=== PATIENT | male | born 1950 | race Caucasian/White ===

== ENCOUNTER 2024-09-16 09:18 | Day surgery (SDC) | payer MEDICARE, SELFPAY ==
--- NOTE | 2024-09-16 10:48 | ITS.CL.CARDI ---
Cubing Machine Tender - Cardioversion
Cardioversion
Procedure Report:
Procedure: Direct current electrical cardioversion
Pre-operative diagnosis: Persistent atrial fibrillation
Post-operative diagnosis: Persistent atrial fibrillation status post DC cardioversion to sinus rhythm
Anesthesia: MAC
Attending Physician: Marshall Scott MD
Procedure Description: The patient was brought to the electrophysiology laboratory in the fasting state. Adherence to anticoagulation regimen was confirmed. Informed consent was obtained from the patient prior to the start of the procedure.
Electrodes were placed on the patient and connected to an external defibrillator. Monitoring of blood pressure, ECG tracings, and pulse oximetry was initiated. The pads were applied to the patient in the anterior and posterior positions. The patient
was sedated by the anesthesiologist. A 200 joule biphasic synchronized shock was delivered to the patient under MAC anesthesia. Sinus rhythm was successfully restored. The patient recovered uneventfully from MAC anesthesia. There were no immediate
post-procedure complications. The patient left the lab in good condition. The attending physician was present throughout the entire procedure.
Impression: Successful direct current cardioversion with mu-ism of sinus rhythm after one 200 joule biphasic synchronized shock.
== END 2024-09-16 11:14 | disposition home or self-care (01) ==
LOC: CATH 09:18
PROVIDERS: ATTENDING PHYSICIAN Internal Medicine Cardiovascular Disease; FAMILY PHYSICIAN Internal Medicine; OTHER PHYSICIAN Internal Medicine Cardiovascular Disease
DX: I48.19 Other persistent atrial fibrillation (principal); I44.4 Left anterior fascicular block; Z85.820 Personal history of malignant melanoma of skin; I44.0 Atrioventricular block, first degree; Z79.01 Long term (current) use of anticoagulants
CPT/HCPCS: 92960; 93005

== ENCOUNTER → 2024-10-28 08:45 | Outpatient (REF) | payer MEDICARE, SELFPAY ==
[2024-10-28 10:15] LABS: % Basophils 0.5 % (0-2); % Eosinophils 3.2 % (0-6); % Immature Granulocytes 0.2 % (0-0.5); % Lymphocytes 26.4 % (20.5-51.1); % Monocytes 8.7 % (1.7-9.3); Absolute Eosinophils 0.1 10^3/uL (0-0.7); Absolute Lymphocytes 1.1 10^3/uL (1.2-3.4); Absolute Monocytes 0.4 10^3/uL (0.1-0.6); Absolute Neutrophils 2.5 10^3/uL (1.4-6.5); Hematocrit 44.3 % (39.0-52.0); Hemoglobin 15.8 g/dL (13.0-18.0); Mean Corp Hgb Conc. 35.7 g/dL (33.0-37.0); Mean Corpuscular Hgb 34.8 pg (27.0-31.0); Mean Corpuscular Volume 97.6 fL (80.0-94.0); Mean Platelet Volume 9.7 fL (7.4-10.4); Nucleated Red Blood Cells % 0 % (-); Platelet Count 218 10^3/uL (130-400); Red Blood Cell Count 4.54 10^6/uL (4.70-6.10); Red Cell Dist. Width 12.5 % (11.5-14.5)
[2024-10-28 10:29] LABS: INR 1.37; PT 17.4 Sec (11.4-14.6)
[2024-10-28 10:55] LABS: ALT (SGPT) 28 U/L (0-50); AST (SGOT) 27 U/L (17-59); Albumin 4.6 g/dl (3.5-5.0); Alkaline Phosphatase 85 U/L (38-126); Blood Urea Nitrogen 22 mg/dl (9-20); Calcium 9.5 mg/dl (8.4-10.2); Carbon Dioxide 26 mmol/L (22-30); Chloride 109 mmol/L (98-107); Glucose 87 mg/dl (70-99); Magnesium 2.2 mg/dl (1.6-2.3); Potassium 4.9 mmol/L (3.5-5.1); Sodium 140 mmol/L (135-145); Total Bilirubin 0.6 mg/dl (0.2-1.3); Total Protein 7.4 g/dl (6.3-8.2); eGFR > 60.00
== END ==
LOC: SDSPAT 08:45
PROVIDERS: ATTENDING PHYSICIAN Internal Medicine Cardiovascular Disease; FAMILY PHYSICIAN Internal Medicine
DX: I48.0 Paroxysmal atrial fibrillation (principal)
CPT/HCPCS: 80053; 83735; 85025; 85610; 86850; 86900; 86901; 93005

== ENCOUNTER 2024-11-08 08:01 | Day surgery (SDC) | payer MEDICARE, SELFPAY ==
--- NOTE | 2024-10-28 08:18 | HPS.HSE ---
Family Physician
-
Family Physician: NO INTERVIEW UNKNOWN
Chief Complaint
-
Paroxysmal atrial fibrillation.
History of Present Illness
The patient is a 74 year old male presenting today for symptomatic, paroxysmal atrial fibrillation. The patient previously underwent a cardioversion in April 2021 and pulmonary vein isolation in June 2021 secondary to this diagnosis.
He believes he did have several short recurrences of atrial fibrillation immediately following his ablation; however, he considered this procedure to be ultimately successful in eliminating his atrial fibrillation symptoms. Those symptoms at the
time included fatigue and dyspnea on exertion. He was hopeful to come off Xarelto given his prolonged period post-ablation without arrhythmia. Prior to considering this, he was advised to first undergo a LINQ implant for further arrhythmia
monitoring. He did have this device implanted in June 2023. Soon after his LINQ was placed, he discontinued Xarelto due to no detectable atrial fibrillation episodes. Unfortunately, in early September 2024, he could tell his atrial fibrillation had
returned as he began to feel lightheaded and dizzy. His LINQ monitor confirmed the presence of atrial fibrillation and pauses up to 8 seconds while in his arrhythmia. He notably does not have pauses while in sinus rhythm. Per the patient, the day
that his symptoms returned, he 'just knew' he was in atrial fibrillation and quickly resumed oral anticoagulation. He does report compliance with Xarelto since then. He did undergo a cardioversion on 09/16/2024 but would now like to proceed with
pulmonary vein isolation for more definitive arrhythmia management. He denies any complaints today such as chest pain, shortness of breath, nausea, vomiting, diarrhea, cough, sore throat, or fever.
Medical History
Past Medical History
Past Medical History: Reports Other
Additional Past Medical History:
1. Paroxysmal atrial fibrillation, status post pulmonary vein isolation, 06/2021, and cardioversion x2; oral anticoagulation with Xarelto.
2. Sick sinus syndrome with pauses up to 8 seconds.
3. First degree AV block.
4. Left anterior fascicular block.
5. Elevated blood pressure without diagnosis of hypertension.
6. Borderline hypercholesterolemia.
7. Colon polyps.
8. Diverticulitis 02/2021.
9. Posterior rib fractures (4) with mild displacement on chest x-ray 04/2021.
10. Melanoma, upper back, status post excision.
11. Macular degeneration.
12. Lyme disease.
13. Hearing impairment of right ear.
14. Mild leukopenia.
Past Surgical History: Reports Other
Additional Past Surgical History:
1. Pulmonary vein isolation.
2. Cardioversion x2.
3. LINQ monitor implant.
4. Colonoscopy x3.
Social History
Tobacco: Non-smoker
Alcohol: Occasional (He reportedly drinks alcohol 2 times a week. )
Personal:
Living: Other (He lives with his in a 3 story home. )
Family History
Family History: Not pertinent
Allergies / Home Medications
Allergy/Medication List:
Home medications: Xarelto 20 mg p.o. daily.
Allergies: No known allergies.
Review of Systems
-
A 12 point ROS was completed and negative except as noted: Yes
Physical Exam
Vital Signs
Blood pressure 156/71. Heart rate 66. Respirations 18. Pulse ox 100% on room air.
Height 5 feet, 9 inches. Weight 78.4 kg. BMI 25.5.
Physical Exam
General: Well Developed, Well Nourished and No Apparent Distress
HEENT: NormoCephalic, Moist mucous membranes, Atraumatic and PERRLA
Respiratory: Clear
Cardiac: Regular Rhythm
GI: Soft, Non Tender and Non Distended
Musculoskeletal: No Edema and Normal Gait & Station
Skin: Warm and Dry
Neuro: AO x 3 and Nonfocal/grossly intact
Laboratory Results
-
DIAGNOSTIC STUDIES as of 10/28/2024: White blood cell count 4.0. Hemoglobin 15.8. Platelet count 218,000. PT 17.4. INR 1.37. Sodium 140. Potassium 4.9. BUN 22. Creatinine 0.8. Glucose 87. Calcium 9.5. Magnesium 2.2. AST 27. ALT 18. Albumin 4.6. Type
and screen O positive.
EKG 10/28/2024: Sinus bradycardia with first degree AV block. Left axis deviation.
Echocardiogram 03/08/2021: Normal left ventricular size, wall thickness and systolic function. No regional wall motion abnormalities are seen. LV ejection fraction is 59% by Boland's biplane method of discs. Normal right ventricular size and
function. Trace tricuspid regurgitation. Estimated pulmonary artery pressure of 42 mmHg assuming a right atrial pressure of 3 mmHg. No prior study available for comparison.
Impression/Plan
-
IMPRESSION/PLAN:
1. Paroxysmal atrial fibrillation: The patient is in need of pulmonary vein isolation with Dr. John Worthy on 11/08/2024. The benefits and risks of the procedure have been explained to the patient. The patient understands these risks and
wishes to proceed. He will not be required to undergo a pre-procedural transesophageal echocardiogram as he has been compliant with his home oral anticoagulation. He is aware to continue his Xarelto uninterrupted prior to his procedure. He will take
no medications the morning of his ablation.
[2024-10-28 09:46] VITALS: BMI 25.5
[2024-11-08] VITALS (10 sets, daily range): BP systolic 120–181; BP diastolic 58–74; BMI 24.8
--- NOTE | 2024-11-08 07:27 | ITS.CL.ABL ---
[employer] - Ablation
Ablation
Procedure Report:
ELECTROPHYSIOLOGIC STUDY AND POSSIBLE ABLATION
DATE: November 08, 2024
Primary Care: Dr Mack Ordaz
Oil Well Service Operator (present/active through the entirety of the procedure): John Worthy M.D.
INDICATION:
Symptomatic Atrial Fibrillation.
Persistent
HISTORY: See H and P.
Symptomatic AF, poorly controlled with attempted medical therapy.
He underwent cryoballoon PVI June 13 2019- and did well for a couple of years. No symptomatic recurrences on his wearable watch then underwent implantation of a loop recorder July 02, 2023. On September 10, 2024 he received an alert for
recurrent atrial fibrillation, symptomatic. Additionally with atrial fibrillation monitoring has demonstrated significant conversion pauses as he is paroxysmal. Pauses lasting up to 8 seconds and associated with dizziness. Since September 10, 2024 his
longest single episode of atrial fibrillation has been 9 days shortest has been 4 days in duration.
HAS-BLED: 1
Age > 65 yrs
CHADSVASc: 1-2
Age (age 74)
PRESENTING RHYTHM: AF
ANTIARRHYTHMIC DRUG: Cardizem discontinued in the past due to SSS with pauses of 6 seconds
ANTICOAGULATION: rivaroxaban
'TIME-OUT': called and confirmed.
SEDATION/ANESTHESIA: provided via the anesthesia department using general anesthesia.
PROCEDURE:
Ultrasound Guidance with real-time visualization of needle insertion and vessel patency performed by ri for femoral venous Vascular Access.
Under real-time US guidance, the needle was advanced with negative pressure into the vein. The needle was seen entering the vessel lumen with a good return of dark red flow, the syringe was removed, non-pulsatile, dark red blood low was noted and
the wire was passed without difficulty, then the needle was removed. US confirmed the wire was in the vein, not going into an artery.
Images were taken and saved for the patient's permanent record. Imaging findings typical femoral venous anatomy. Direct visualization of needle puncture into the femoral vein was observed and recorded.
A decapolar CS catheter was placed within the CS for mapping and pacing.
The intracardiac ultrasound catheter was positioned in the RA for continuous intracardiac ultrasound imaging.
Heparin bolus and infusion to target ACT at 300 -350 seconds was administered. Transseptal puncture was performed. This entailed advancing a sheath with dilator into the superior vena cava and withdrawing both (monitoring intracardiac ultrasound,
fluoroscopy and tip pressure) with the tip oriented toward the atrial septum. The fossa ovalis was engaged (indicated by sudden displacement of the sheath tip as well as tenting of the fossa seen on intracardiac ultrasound).
Transseptal puncture was performed. Left atrial catheter position was confirmed by echocardiographic imaging, pressure monitoring (LA mean pressure 9 mm Hg) and fluoroscopy. The sheath was advanced over the dilator and positioned in the left
atrium.
The MODIZY.COMa multipolar mapping/ablation Sphere-9 catheter was positioned through the transseptal sheath for high density mapping.
Geometry and voltage mapping was performed using the [employer] mapping system for three-dimensional electroanatomical mapping.
Catheter positioning was guided and confirmed using both I.C.E. and fluoroscopy.
Mapping demonstrates 4 pulmonary veins (LSPV, LIPV, RSPV, RIPV). There is electrical reconnection at the anterior quadrant of the right inferior pulmonary vein and at the jeniffer between the right superior and right inferior pulmonary veins. These
targets were addressed with pulsed field energy delivery rendering the veins electrically isolated.
Additionally there is connection at the jeniffer between the left superior and left inferior pulmonary vein 2 energy deliveries in this area completely isolated the veins.
Additional energy applications/additional ablation sets targeted extra PV contributors to atrial fibrillation.
Targets were identified with electroanatomical voltage mapping finding areas of low voltage and complex fractionated electrograms. These areas can be sites for the formation of rotors which can drive and maintain atrial fibrillation. These areas are
known to be significant contributors to initiation and perpetuation of atrial fibrillation.
Targets for additional PFA ablation included:
1. LA posterior wall
2. Ligament of Emmanuel
After ablation of the posterior wall and ligament of Emmanuel, target remained at the floor of the LA
3. Inferior floor line
At the completion of ablation at the targeted extra PV sites, post ablation mapping finds that the targeted complex fractionated electrograms are eliminated rendering the sites no longer able to contribute to atrial fibrillation. Post ablation high
output pacing at the targeted sites demonstrate lack of capture / exit block.
Programmed electrostimulation including burst atrial pacing as well as delivery of atrial decremental extrastimuli down to atrial ERP failed to induce any sustained arrhythmias.
I.C.E. :
Pre-Ablation Post-Ablation
LVEF: 55 % 55 %
WMA: none none
Pericardial effusion: trace trace
COMPLICATIONS:
None
SUMMARY:
- Mapping and ablation to isolate the PVs resulting in electrical isolation of the pulmonary veins
- Additional AF ablation sets X 3 after PVI (LA posterior wall, ligament of Emmanuel, Inf/floor of the LA posterior wall) resulting in elimination of the targeted extra PV contributors to atrial fibrillation (Post wall, ligament of Emmanuel, Inf LA
floor)
- 3-D Electroanatomical Mapping
- Intracardiac Ultrasound
- Ultrasound guidance for vascular access
Post ablation, I discussed today's findings and results with the patient's , Verna.
RECOMMENDATIONS:
- Observe in monitored bed.
- Maintain oral anticoagulation.
- Office visit with me is scheduled for March 03, 2025
Copy to:
Dr Mack Ordaz
[2024-11-08 10:32] LABS: ACT-LR - POC 290 Seconds (116-155)
[2024-11-08] MEDS: ANESTHETIC LOZENGE 1 LOZENGE PO (11:55)
--- NOTE | 2024-11-08 15:55 | W.PN.UPDATE ---
Update Note
Progress Note Update
Pt seen post PFA. Right groin site without ht/bleeding, oob ambulating, EKG NSR w/1st deg AVB as before, 70s, no acute changes. Resume xarelto tonight. Followup with Dr. Worthy as scheduled. Home later today if groin site/tele remain stable.
== END 2024-11-08 15:58 | disposition home or self-care (01) ==
LOC: CATH 08:01
PROVIDERS: ATTENDING PHYSICIAN Internal Medicine Cardiovascular Disease; FAMILY PHYSICIAN Internal Medicine
DX: I48.19 Other persistent atrial fibrillation (principal); E78.00 Pure hypercholesterolemia, unspecified; I44.4 Left anterior fascicular block; I48.0 Paroxysmal atrial fibrillation; I49.5 Sick sinus syndrome; I44.0 Atrioventricular block, first degree; Z86.0100 Personal history of colon polyps, unspecified; H91.90 Unspecified hearing loss, unspecified ear; A69.20 Lyme disease, unspecified; H35.30 Unspecified macular degeneration; R03.0 Elevated blood-pressure reading, without diagnosis of hypertension; Z79.01 Long term (current) use of anticoagulants; D72.819 Decreased white blood cell count, unspecified
CPT/HCPCS: C1894; C1769; C1766; C1892; C1733; 85347; 93005; 93656; 93657

== ENCOUNTER 2025-05-09 06:16 | Day surgery (SDC) | payer MEDICARE, SELFPAY | END 2025-05-09 08:27 | disposition home or self-care (01) | LOC: GI 06:16 | PROVIDERS: ATTENDING PHYSICIAN Internal Medicine Gastroenterology | DX: Z12.11 Encounter for screening for malignant neoplasm of colon (principal); K63.5 Polyp of colon; K57.30 Diverticulosis of large intestine without perforation or abscess without bleeding; K64.8 Other hemorrhoids; Z86.0100 Personal history of colon polyps, unspecified | CPT/HCPCS: 45380; 88305 ==